=== PATIENT | male | born 1945 | race Caucasian/White ===

== ENCOUNTER 2022-03-24 04:15 | Inpatient (IN) ==
[2022-03-24 10:15] VITALS: BMI 20.3
[2022-03-24 10:57] LABS: BLOOD UREA NITROGEN 23 mg/dL (7-18); CALCIUM 8.9 mg/dL (8.5-10.1); CARBON DIOXIDE 28.1 mmol/L (21-32); CHLORIDE 104 mmol/L (98-107); COR NA(FOR HYPERGLY) 142 mmol/L (136-145); CREATININE 1.21 mg/dL (0.70-1.30); HEMATOCRIT 29.9 % (42.0-54.0); HEMOGLOBIN 10.3 g/dL (13.5-18.0); MEAN CORPUSCULAR HEMOGLOBIN 27.7 pg (27.0-34.0); SODIUM 141 mmol/L (136-145); eGFR NON BLACK RACES > 60 (>60)
[2022-03-24 11:08] LABS: BASOPHILS # (AUTO) 0.1 X10^3/uL (0.0-0.1); BASOPHILS % (AUTO) 0.9 % (0.2-1.0); EOSINOPHILS # (AUTO) 0.3 x10^3/uL (0.0-0.2); EOSINOPHILS % (AUTO) 3.1 % (0.9-2.9); LYMPHOCYTES # (AUTO) 1.8 X10^3/uL (1.3-2.9); LYMPHOCYTES % (AUTO) 18.2 % (21.0-51.0); MEAN CORPUSCULAR HGB CONC 34.6 g/dL (33.0-35.0); MEAN CORPUSCULAR VOLUME 80.1 fL (80.0-100.0); MEAN PLATELET VOLUME 9.6 fL (7.4-11.0); MONOCYTES # (AUTO) 1.3 x10^3/uL (0.3-0.8); MONOCYTES % (AUTO) 13.4 % (0.0-13.0); NEUTROPHILS # (AUTO) 6.4 x10^3/uL (2.2-4.8); NEUTROPHILS % (AUTO) 64.4 % (42.0-75.0); RED BLOOD COUNT 3.74 X10^6/uL (4.7-6.0); RED CELL DISTRIBUTION WIDTH 18.5 % (11.6-16.5)
[2022-03-24] MEDS: PROTONIX INJ 40 MG VIAL IVP SCH ×3 (11:40→21:05)
[2022-03-24] MEDS: NS 1,000 ML IV 1,000 ML IV SCH ×2 (11:40→23:28)
--- NOTE | 2022-03-24 11:44 | DR.H&P ---
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 PT HGB REPORTED 7.3 PRIOR TO ARRIVAL TO [facility]. - Past Medical History Past Medical History: AR, Coronary Artery Disease, Hypertension, Diabetes - Past Surgical History Surgical History: Other - Family History Family Medical History: Diabetes Mellitus, Hypertension - Social History Does patient currently use any type of tobacco product: No Have you used tobacco products in the last 12 months: No Type of Tobacco Use: None Alcohol Use: None Drug Use: None - Medications Home Medications: morphine Allergy (Verified 05/24/19 12:08) Penicillins Allergy (Verified 05/24/19 12:08) CONTINUE taking the following medications apixaban 5 mg tablet 5 mg feeding tube BID 03/24/22 [History] cholestyramine-aspartame 4 gram oral powder for susp in a packet (Cholestyramine Light) 4 g feeding tube QDAY 03/24/22 [History] guaifenesin 100 mg/5 mL oral liquid 200 mg feeding tube Q6H 03/24/22 [History] guaifenesin 400 mg tablet (Mucus Relief) 400 mg PO BID 03/24/22 [History] insulin glargine 100 unit/mL subcutaneous solution (Lantus U-100 Insulin) 10 unit subcut BID 03/24/22 [History] metoprolol tartrate 25 mg tablet 25 mg feeding tube BID 03/24/22 [History] quetiapine 100 mg tablet 75 mg PO QDAY 03/24/22 [History] sertraline 100 mg tablet 100 mg feeding tube QDAY 03/24/22 [History] - Review of Systems Constitutional: denies: Fever Eyes: No Symptoms Reported ENT: No Symptoms Reported Respiratory: Cough. denies: SOB with Excertion Cardiovascular: denies: Chest Pain Gastrointestinal: Melena. denies: Nausea, Vomiting Genitourinary: Incontinence Musculoskeletal: Shoulder Pain, Back Pain, Leg Pain, Neck Pain Skin: No Symptoms Reported Neurological: Weakness - Physical Exam Vital Signs: Blood Pressure [Left Arm] 141/71 Oriented: Person Eyes: Normal, Diplopia Nose: Normal Throat: Normal Respiratory: Wheezes Throughout, RLL Diminished, LLL Diminished Cardiovascular: Normal. negative: Edema : Normal Auscultation: Bowel Sounds: Normal Palpation: Normal Tenderness: Normal Skin: Decreased Turgur, Other (PEG TUBE PRESENT) Musculoskeletal: Motor Deficit Psychiatric: Anxiety Mood Description: Anxious Affect: Anxious Speech Pattern: Appropriate, Inappropriate (PT HAS BOTH APPROPRIATE AND INAPPROPRIATE VERBAL RESPONSES) - Assessment/Plan (1) Lower GI bleed Status: Acute Plan: ADMIT, TYPE AND SCREEN, CONTINUE WITH TRANSFUSION PRB'S PER PROTOCOL. NPO, PROTONIX IV BID, STRICT I&OS. OCCULT STOOLS. VERIFY HOME MEDICATION, (2) Anemia Status: Acute (3) Generalized anxiety disorder Status: Acute (4) Dementia Status: Acute - Allergies Allergies/Adverse Reactions: Allergies Allergy/AdvReac Type Severity Reaction Status Date / Time morphine Allergy Verified 05/24/19 12:08 Penicillins Allergy Verified 05/24/19 12:08
[2022-03-24] MEDS ORDERED: ROBITUSSIN (PLAIN) PEG SCH (12:00)
[2022-03-24] MEDS: ZOLOFT PEG SCH (14:12)
[2022-03-24] MEDS ORDERED: BUTT CREAM (COMPOUND) TOP PRN (19:00)
--- NOTE | 2022-03-24 20:51 | RAD ---
HISTORYGI BLEEDSTUDYKUBCOMPARISONNoneTEC HNIQUEAP supine projection, 2 imagesFINDINGSGas and stool in non-distended colon.Moderate stool burden in the rectum.Gas in scattered loops of mildly distended small bowel.No gross free air.No abnormal calcifications.No acute osseous abnormality.IMPRESSIONGas in scattered loops of mildly distended small bowel. Findings could represent a nonspecific enteritis, ileus for early mechanical obstruction.Electronically signed by: Mario Tineo (Mar 24, 2022 20:49:43)
[2022-03-24] MEDS: ROBITUSSIN (PLAIN) PO SCH (21:06)
[2022-03-24] MEDS: SNACK - Diabetic Appropriate PO SCH (21:06)
[2022-03-24] MEDS: LANTUS SC SCH (21:06)
[2022-03-24] MEDS: LOPRESSOR TAB 25 MG PEG SCH (21:06)
[2022-03-24 21:57] LABS: ALANINE AMINOTRANSFERASE 31 Units/L (12-78); ALBUMIN 3.1 g/dL (3.4-5.0); ALKALINE PHOSPHATASE 117 Units/L (46-116); ASPARTATE AMINO TRANSFERASE 17 Units/L (15-37); COR CA(FOR HYPOALB) 9.6 mg/dL (8.5-10.1); TOTAL PROTEIN 7.3 g/dL (6.4-8.2)
[2022-03-25 05:03] LABS: BASOPHILS # (AUTO) 0.1 X10^3/uL (0.0-0.1); BASOPHILS % (AUTO) 0.6 % (0.2-1.0); EOSINOPHILS # (AUTO) 0.2 x10^3/uL (0.0-0.2); EOSINOPHILS % (AUTO) 2.6 % (0.9-2.9); HEMATOCRIT 30.3 % (42.0-54.0); HEMOGLOBIN 10.2 g/dL (13.5-18.0); LYMPHOCYTES # (AUTO) 1.7 X10^3/uL (1.3-2.9); LYMPHOCYTES % (AUTO) 17.3 % (21.0-51.0); MEAN CORPUSCULAR HEMOGLOBIN 27.3 pg (27.0-34.0); MEAN CORPUSCULAR HGB CONC 33.8 g/dL (33.0-35.0); MEAN CORPUSCULAR VOLUME 80.7 fL (80.0-100.0); MEAN PLATELET VOLUME 9.7 fL (7.4-11.0); MONOCYTES # (AUTO) 0.9 x10^3/uL (0.3-0.8); NEUTROPHILS # (AUTO) 6.7 x10^3/uL (2.2-4.8); NEUTROPHILS % (AUTO) 70.5 % (42.0-75.0); RED BLOOD COUNT 3.75 X10^6/uL (4.7-6.0); RED CELL DISTRIBUTION WIDTH 18.3 % (11.6-16.5); WHITE BLOOD COUNT 9.6 X10^3/uL (3.6-10.0)
[2022-03-25 05:10] LABS: BLOOD UREA NITROGEN 21 mg/dL (7-18); CALCIUM 8.7 mg/dL (8.5-10.1); CARBON DIOXIDE 28.2 mmol/L (21-32); CHLORIDE 106 mmol/L (98-107); COR NA(FOR HYPERGLY) 143 mmol/L (136-145); CREATININE 1.22 mg/dL (0.70-1.30); SODIUM 142 mmol/L (136-145); eGFR NON BLACK RACES > 60 (>60)
[2022-03-25] MEDS: LANTUS SC SCH ×2 (09:21→21:10)
[2022-03-25] MEDS: LOPRESSOR TAB 25 MG PEG SCH ×2 (09:21→21:09)
[2022-03-25] MEDS: ROBITUSSIN (PLAIN) PO SCH ×2 (09:22→21:09)
[2022-03-25] MEDS: ZOLOFT PEG SCH (09:22)
[2022-03-25] MEDS: PROTONIX INJ 40 MG VIAL IVP SCH ×2 (10:40→21:09)
[2022-03-25] MEDS ORDERED: XYLOCAINE 2 % (PLAIN) ONE (11:28)
[2022-03-25] MEDS ORDERED: DIPRIVAN VIAL 20 ML ONE (11:28)
[2022-03-25 14:44] LABS: CRYPTOSPORIDIUM PARVUM ANTIGEN NEGATIVE (NEGATIVE); GIARDIA LAMBLIA ANTIGEN NEGATIVE (NEGATIVE)
--- NOTE | 2022-03-25 17:32 | PCM.PROG ---
Progress Note - Progress Note for Day of Date of Exam: 03/25/22 - Subjective Subjective: PT IS 76 WM ADMITTED ON 03/24 WITH ANEMIA AND LOWER GI BLEED. PT HGB 10.2 THIS AM, WITH SERIAL OCCULT STOOLS OBTAINED NEGATIVE FOR BLOOD. PT HAS BEEN ON IV PROTONIX SINCE ADMISSION. HE IS NPO THIS MORNING FOR GI CONSULT WITH POSSIBLE EGD. - Past Medical Family Social History Past Med/Fam/Surg Hx: No changes since H&P Allergies: Allergies morphine Allergy (Verified 05/24/19 12:08) Penicillins Allergy (Verified 05/24/19 12:08) - Review of Systems ROS: No change since H&P - Vital Signs and I&O's Vital Signs: Temperature 98.8 F Pulse Rate [Right Brachial] 111 Respiratory Rate 20 Blood Pressure [Left Arm] 116/69 O2 Sat by Pulse Oximetry 96 Intake and Output: Intake & Output 03/23/22 03/24/22 03/25/22 03/26/22 11:59 11:59 11:59 11:59 Intake Total 860 / 860 257 / 257 Balance 860 / 860 257 / 257 - Physical Exam Oriented: Person Eyes: Normal, Diplopia Nose: Normal Throat: Normal Respiratory: Diminished Cardiovascular: Normal. negative: Edema : Normal Auscultation: Bowel Sounds: Normal Tenderness: Normal Skin: Decreased Turgur, Other (PEG TUBE PRESENT) Musculoskeletal: Motor Deficit Psychiatric: Anxiety Mood Description: Anxious Affect: Anxious Speech Pattern: Clear, Appropriate - Laboratory and Diagnostics Result Diagrams: 03/25/22 04:05 03/25/22 04:05 Labs: 03/25/22 13:30 Stool - Final Laboratory WBC 9.6 X10^3/uL (3.6-10.0) 03/25/22 04:05 RBC 3.75 X10^6/uL (4.7-6.0) L 03/25/22 04:05 Hgb 10.2 g/dL (13.5-18.0) L 03/25/22 04:05 Hct 30.3 % (42.0-54.0) L 03/25/22 04:05 MCV 80.7 fL (80.0-100.0) 03/25/22 04:05 MCH 27.3 pg (27.0-34.0) 03/25/22 04:05 MCHC 33.8 g/dL (33.0-35.0) 03/25/22 04:05 RDW 18.3 % (11.6-16.5) H 03/25/22 04:05 Plt Count 209 X10^3/uL (150.0-450.0) 03/25/22 04:05 MPV 9.7 fL (7.4-11.0) 03/25/22 04:05 Neut % (Auto) 70.5 % (42.0-75.0) 03/25/22 04:05 Lymph % (Auto) 17.3 % (21.0-51.0) L 03/25/22 04:05 [place] % (Auto) 9.0 % (0.0-13.0) 03/25/22 04:05 Eos % (Auto) 2.6 % (0.9-2.9) 03/25/22 04:05 Baso % (Auto) 0.6 % (0.2-1.0) 03/25/22 04:05 Neut # (Auto) 6.7 x10^3/uL (2.2-4.8) H 03/25/22 04:05 Lymph # (Auto) 1.7 X10^3/uL (1.3-2.9) 03/25/22 04:05 [place] # (Auto) 0.9 x10^3/uL (0.3-0.8) H 03/25/22 04:05 Eos # (Auto) 0.2 x10^3/uL (0.0-0.2) 03/25/22 04:05 Baso # (Auto) 0.1 X10^3/uL (0.0-0.1) 03/25/22 04:05 Absolute Nucleated RBC 0.1 /100WBC 03/25/22 04:05 Sodium 142 mmol/L (136-145) 03/25/22 04:05 Corrected Sodium 143 mmol/L (136-145) 03/25/22 04:05 Potassium 3.9 mmol/L (3.5-5.1) 03/25/22 04:05 Chloride 106 mmol/L (98-107) 03/25/22 04:05 Carbon Dioxide 28.2 mmol/L (21-32) 03/25/22 04:05 BUN 21 mg/dL (7-18) H 03/25/22 04:05 Creatinine 1.22 mg/dL (0.70-1.30) 03/25/22 04:05 Est GFR (MDRD) Af Amer > 60 (>60) 03/25/22 04:05 Est GFR (MDRD) Non-Af > 60 (>60) 03/25/22 04:05 Glucose 137 mg/dL (65-99) H 03/25/22 04:05 POC Glucose (mg/dL) 190 mg/dL (65-99) H 03/25/22 17:03 Calcium 8.7 mg/dL (8.5-10.1) 03/25/22 04:05 Corrected Calcium 9.6 mg/dL (8.5-10.1) 03/24/22 10:35 Total Bilirubin 0.40 mg/dL (0.2-1.0) 03/24/22 10:35 AST 17 Units/L (15-37) 03/24/22 10:35 ALT 31 Units/L (12-78) 03/24/22 10:35 Alkaline Phosphatase 117 Units/L (46-116) H 03/24/22 10:35 Total Protein 7.3 g/dL (6.4-8.2) 03/24/22 10:35 Albumin 3.1 g/dL (3.4-5.0) L 03/24/22 10:35 Globulin 4.2 g/dL (2.5-4.5) 03/24/22 10:35 Albumin/Globulin Ratio 0.7 Ratio (1.1-2.1) L 03/24/22 10:35 Stl Occult Blood (IFOB) Negative (NEGATIVE) 03/24/22 18:48 Stool for White Cells Negative (NEGATIVE) 03/25/22 13:30 Stl C. diff Tox B Gene Negative (NEGATIVE) 03/25/22 13:30 Stl C. diff [id number] Presumptive negative (NEGATIVE) 03/25/22 13:30 Stool H. pylori Ag Negative (NEGATIVE) 03/25/22 13:30 Cryptosporid parvum Ag Negative (NEGATIVE) 03/25/22 13:30 Giardia lamblia Ag Negative (NEGATIVE) 03/25/22 13:30 Tissue Pathology To follow 03/25/22 11:41 Blood Type O POSITIVE 03/24/22 11:30 Antibody Screen Negative 03/24/22 11:30 Crossmatch See Detail 03/24/22 11:30 - Plan (1) Lower GI bleed Status: Acute Plan: ADMIT, TYPE AND SCREEN, CONTINUE WITH TRANSFUSION PRB'S PER PROTOCOL, GI CONSULT. NPO, PROTONIX IV BID, STRICT I&OS. OCCULT STOOLS. VERIFY HOME MEDICATION (2) Anemia Status: Acute (3) Generalized anxiety disorder Status: Acute (4) Dementia Status: Acute
[2022-03-25] MEDS: SNACK - Diabetic Appropriate PO SCH (21:10)
[2022-03-25] MEDS: NS 1,000 ML IV 1,000 ML IV SCH (21:10)
[2022-03-25] MEDS ORDERED: HALDOL INJ IM PRN (23:46)
[2022-03-25] MEDS ORDERED: HALDOL INJ ONE (23:49)
[2022-03-26] MEDS: NS 1,000 ML IV 1,000 ML IV SCH (06:05)
[2022-03-26 06:22] LABS: BASOPHILS # (AUTO) 0.1 X10^3/uL (0.0-0.1); EOSINOPHILS # (AUTO) 0.2 x10^3/uL (0.0-0.2); EOSINOPHILS % (AUTO) 2.2 % (0.9-2.9); HEMATOCRIT 30.9 % (42.0-54.0); HEMOGLOBIN 10.6 g/dL (13.5-18.0); LYMPHOCYTES # (AUTO) 1.5 X10^3/uL (1.3-2.9); LYMPHOCYTES % (AUTO) 17.1 % (21.0-51.0); MEAN CORPUSCULAR HEMOGLOBIN 27.6 pg (27.0-34.0); MEAN CORPUSCULAR HGB CONC 34.4 g/dL (33.0-35.0); MEAN CORPUSCULAR VOLUME 80.3 fL (80.0-100.0); MEAN PLATELET VOLUME 9.8 fL (7.4-11.0); MONOCYTES # (AUTO) 1.1 x10^3/uL (0.3-0.8); MONOCYTES % (AUTO) 12.9 % (0.0-13.0); NEUTROPHILS # (AUTO) 5.9 x10^3/uL (2.2-4.8); NEUTROPHILS % (AUTO) 66.8 % (42.0-75.0); RED BLOOD COUNT 3.85 X10^6/uL (4.7-6.0); RED CELL DISTRIBUTION WIDTH 18.1 % (11.6-16.5); WHITE BLOOD COUNT 8.8 X10^3/uL (3.6-10.0)
[2022-03-26 06:43] LABS: ALANINE AMINOTRANSFERASE 25 Units/L (12-78); ALBUMIN 2.9 g/dL (3.4-5.0); ALKALINE PHOSPHATASE 125 Units/L (46-116); ASPARTATE AMINO TRANSFERASE 17 Units/L (15-37); BLOOD UREA NITROGEN 20 mg/dL (7-18); CALCIUM 8.8 mg/dL (8.5-10.1); CARBON DIOXIDE 25.4 mmol/L (21-32); CHLORIDE 107 mmol/L (98-107); COR CA(FOR HYPOALB) 9.7 mg/dL (8.5-10.1); COR NA(FOR HYPERGLY) 146 mmol/L (136-145); CREATININE 1.15 mg/dL (0.70-1.30); SODIUM 143 mmol/L (136-145); eGFR NON BLACK RACES > 60 (>60)
[2022-03-26] MEDS ORDERED: ZOLOFT ONE (08:19)
[2022-03-26] MEDS: ZOLOFT PEG SCH (09:03)
[2022-03-26] MEDS: LOPRESSOR TAB 25 MG PEG SCH (09:03)
[2022-03-26] MEDS: ROBITUSSIN (PLAIN) PO SCH (09:04)
[2022-03-26] MEDS: LANTUS SC SCH (09:15)
[2022-03-26 09:56] VITALS: BP 140/71
== END 2022-03-26 11:20 | DRG 379 ==
LOC: MED/SURG 08:47
PROVIDERS: ADMIT Internal Medicine; ATTEND Internal Medicine
DX: I25.10 Atherosclerotic heart disease of native coronary artery without angina pectoris; Z93.1 Gastrostomy status; K29.00 Acute gastritis without bleeding; K29.80 Duodenitis without bleeding; K92.2 Gastrointestinal hemorrhage, unspecified; Z79.1 Long term (current) use of non-steroidal anti-inflammatories (NSAID); E11.65 Type 2 diabetes mellitus with hyperglycemia; F03.90 Unspecified dementia, unspecified severity, without behavioral disturbance, psychotic disturbance, mood disturbance, and anxiety; I10 Essential (primary) hypertension; F41.1 Generalized anxiety disorder; K21.00 Gastro-esophageal reflux disease with esophagitis, without bleeding; D64.89 Other specified anemias; I25.2 Old myocardial infarction; K44.9 Diaphragmatic hernia without obstruction or gangrene